=== PATIENT | female | born 1955 | race African-American/Black ===

== ENCOUNTER 2018-12-16 19:10 | Inpatient (IN) ==
[2018-12-16 19:56] LABS: Basophils % 0.4 % (0.0-0.8); Eosinophils % 0.1 % (0.00-10.9); Hematocrit 36.2 VOL% (35.7-47.0); Hemoglobin 13.4 GM/DL (12.0-16.0); Immature Granulocytes % 0.5 %; Immature Granulocytes Absolute 0.04 #; Lymphocytes # 1.2 10*3/uL (1.4-4.0); Lymphocytes % 16.6 % (21.3-54.2); Mean Corpuscular Volume 85.8 FL (87-102); Mean Platelet Volume 11.5 FL (9.6-12.0); Monocytes % 9.8 % (1.7-12.7); Neutrophils % 72.6 % (38.7-73.9); Platelet Count 234 T/CUMM (130-400); Red Blood Count 4.22 MC/CUMM (3.8-5.5); Red Cell Distribution Width 12.9 % (9.3-17.3); White Blood Count 7.4 T/CUMM (4-12)
[2018-12-16] MEDS ORDERED: LORazepam 2 MG/1 ML VIAL IV STA (20:06)
[2018-12-16] MEDS ORDERED: VANCOMYCIN INJ 1,000 MG in SODIUM CHLORIDE 0.9% 250 ML IV STA (20:06)
[2018-12-16] MEDS ORDERED: CEFEPIME 2,000 MG in SODIUM CHLORIDE 0.9% 100 ML IV STA ×2 (20:06→20:07)
[2018-12-16 20:23] LABS: Albumin 3.8 G/DL (3.4-5.0); Bilirubin,Total 0.8 MG/DL (0.2-1.0); Calcium 9.4 MG/DL (8.5-10.1); Osmolality,Calculated 262.8 MOS/KG (273-304); Total Protein 8.2 G/DL (6.4-8.3)
[2018-12-16] MEDS ORDERED: KETOROLAC 30 MG/1 ML VIAL IV STA (21:11)
[2018-12-16] MEDS ORDERED: LABETALOL 20 MG/4 ML SYRINGE IV STA (21:56)
[2018-12-16] MEDS ORDERED: hydrALAZINE 20 MG/1 ML VIAL IV STA (21:56)
[2018-12-16 22:16] LABS: Apearance,Urine CLEAR (Clear); Bacteria,Urine Occasional /HPF (Few); Bilirubin,Urine Negative (Negative); Blood, Urine Negative (Negative); Glucose,Urine (UA) Negative (Negative); Ketones,Urine Negative (Negative); Mucus,Urine Occasional /LPF (Occasional); Nitrite,Urine Negative (Negative); Protein,Urine Negative; RBC,Urine 3 /HPF (0-4); Squamous Epithelial Cell,Urine Occasional /HPF (0-10); Urine Color Yellow (Yellow); Urine Specific Gravity 1.013 (1.001-1.035); Urine Urobilinogen < 2.0 EU/DL (0.2-1.0); WBC,Urine 16 /HPF (0-6)
[2018-12-16] MEDS ORDERED: SODIUM CHLORIDE 0.9% 1,000 ML IV STA (22:36)
[2018-12-16 22:55] LABS: INR 1.6; PT Patient Result 16.8 SECS (9.6-12.2)
[2018-12-17] MEDS ORDERED: ACETAMINOPHEN 650 MG SUPP RECTAL STA (00:49)
[2018-12-17] MEDS ORDERED: ONDANSETRON 4 MG/2 ML VIAL IV PRN (03:10)
[2018-12-17] MEDS ORDERED: ACETAMINOPHEN 650 MG SUPP RECTAL PRN (03:10)
[2018-12-17 03:21] LABS: Basophils % 0.2 % (0.0-0.8); Eosinophils % 0.1 % (0.00-10.9); Hematocrit 33.1 VOL% (35.7-47.0); Immature Granulocytes % 0.5 %; Immature Granulocytes Absolute 0.05 #; Lymphocytes # 1.2 10*3/uL (1.4-4.0); Lymphocytes % 11.5 % (21.3-54.2); Mean Corpuscular HGB Conc 36.3 GM/DL (32-36); Mean Corpuscular Volume 85.3 FL (87-102); Mean Platelet Volume 11.1 FL (9.6-12.0); Monocytes % 8.4 % (1.7-12.7); Neutrophils % 79.3 % (38.7-73.9); Platelet Count 179 T/CUMM (130-400); Red Blood Count 3.88 MC/CUMM (3.8-5.5); Red Cell Distribution Width 12.6 % (9.3-17.3); White Blood Count 10.2 T/CUMM (4-12)
[2018-12-17 03:38] LABS: Calcium 8.5 MG/DL (8.5-10.1); Osmolality,Calculated 268.4 MOS/KG (273-304); Thyroid Stimulating Hormone 1.1 uIU/ml (0.358-3.74)
[2018-12-17] MEDS: SODIUM CHLORIDE 0.9% 1,000 ML IV SCH ×3 (04:33→19:53)
[2018-12-17] MEDS: LORazepam 2 MG/1 ML VIAL IV PRN (07:29)
[2018-12-17] MEDS ORDERED: MAGNESIUM SULF RIDER 4 GM in PREMIX 1 EACH IV PRN (07:45)
[2018-12-17] MEDS ORDERED: MAGNESIUM SULF RIDER 2 GM in PREMIX 1 EACH IV PRN (07:45)
[2018-12-17] MEDS ORDERED: PHENYTOIN 100 MG/2 ML VIAL IV SCH (08:00)
[2018-12-17] MEDS ORDERED: PHENYTOIN INJ 1,000 MG in SODIUM CHLORIDE 0.9% 100 ML IV ONE (09:00)
[2018-12-17] MEDS ORDERED: VANCOMYCIN INJ 1,250 MG in SODIUM CHLORIDE 0.9% 250 ML IV SCH (16:00)
[2018-12-17] MEDS ORDERED: SODIUM PHOSPHATE INJ 30 MMOL in SODIUM CHLORIDE 0.9% 250 ML IV ONE (16:10)
[2018-12-17] MEDS: PHENYTOIN 100 MG/2 ML VIAL IV SCH (17:11)
[2018-12-18] MEDS: LORazepam 2 MG/1 ML VIAL IV PRN (00:18)
[2018-12-18] MEDS: PHENYTOIN 100 MG/2 ML VIAL IV SCH ×3 (00:22→17:17)
[2018-12-18] MEDS: SODIUM CHLORIDE 0.9% 1,000 ML IV SCH ×3 (02:37→18:14)
[2018-12-18] MEDS: hydrALAZINE 20 MG/1 ML VIAL IV PRN ×3 (02:38→23:46)
[2018-12-18 05:34] LABS: Calcium 8.3 MG/DL (8.5-10.1); Osmolality,Calculated 275.7 MOS/KG (273-304)
[2018-12-18 05:51] LABS: Basophils % 0.4 % (0.0-0.8); Eosinophils # 0.2 10*3/uL (0.0-0.87); Eosinophils % 3.6 % (0.00-10.9); Immature Granulocytes % 0.2 %; Immature Granulocytes Absolute 0.01 #; Lymphocytes # 0.9 10*3/uL (1.4-4.0); Lymphocytes % 18.9 % (21.3-54.2); Mean Corpuscular HGB Conc 35.3 GM/DL (32-36); Mean Corpuscular Volume 89.5 FL (87-102); Mean Platelet Volume 11.4 FL (9.6-12.0); Monocytes % 12.9 % (1.7-12.7); Platelet Count 172 T/CUMM (130-400); Red Cell Distribution Width 13.1 % (9.3-17.3); White Blood Count 4.7 T/CUMM (4-12)
[2018-12-18] MEDS ORDERED: POTASSIUM PHOSPHATE 15 MMOL in SODIUM CHLORIDE 0.9% 100 ML IV ONE (08:37)
[2018-12-18] MEDS: VANCOMYCIN INJ 1,250 MG in SODIUM CHLORIDE 0.9% 250 ML IV SCH ×2 (10:22→22:00)
[2018-12-18] MEDS ORDERED: LORazepam 2 MG/1 ML VIAL ONE (11:37)
[2018-12-19] MEDS: PHENYTOIN 100 MG/2 ML VIAL IV SCH (00:23)
[2018-12-19] MEDS: SODIUM CHLORIDE 0.9% 1,000 ML IV SCH ×2 (04:37→12:56)
[2018-12-19] MEDS: PHENYTOIN ER 100 MG CAPSULE PO SCH ×3 (09:41→21:11)
[2018-12-19] MEDS: AMOXICILLIN/CLAV 500 MG TABLET PO SCH ×2 (09:41→20:58)
[2018-12-19] MEDS: FLUTICASONE 50 MCG NASAL SPRAY 16 GM BOTTLE BOTH NARES SCH ×2 (09:41→21:11)
[2018-12-19] MEDS: hydrALAZINE 20 MG/1 ML VIAL IV PRN ×2 (09:59→23:28)
[2018-12-19] MEDS ORDERED: POTASSIUM PHOSPHATE 30 MMOL in SODIUM CHLORIDE 0.9% 250 ML IV ONE (10:00)
[2018-12-19] MEDS: ACETAMINOPHEN 325 MG TABLET PO PRN ×2 (12:14→23:09)
[2018-12-19] MEDS: carvediloL 12.5 MG TABLET PO SCH ×2 (16:38→21:11)
[2018-12-19] MEDS: levETIRAcetam 500 MG TABLET PO SCH (20:58)
[2018-12-20] MEDS: SODIUM CHLORIDE 0.9% 1,000 ML IV SCH (02:03)
[2018-12-20 04:53] LABS: Calcium 8.4 MG/DL (8.5-10.1); Osmolality,Calculated 278.3 MOS/KG (273-304)
[2018-12-20] MEDS: PHENYTOIN ER 100 MG CAPSULE PO SCH ×2 (09:14→21:17)
[2018-12-20] MEDS: carvediloL 12.5 MG TABLET PO SCH ×2 (09:15→21:18)
[2018-12-20] MEDS: levETIRAcetam 500 MG TABLET PO SCH ×2 (09:15→21:18)
[2018-12-20] MEDS: AMOXICILLIN/CLAV 500 MG TABLET PO SCH ×2 (09:15→21:17)
[2018-12-20] MEDS: FLUTICASONE 50 MCG NASAL SPRAY 16 GM BOTTLE BOTH NARES SCH ×2 (09:22→21:18)
[2018-12-20] MEDS ORDERED: SODIUM PHOSPHATE INJ 30 MMOL in SODIUM CHLORIDE 0.9% 250 ML IV ONE (15:00)
[2018-12-20 15:04] LABS: INR 1.1; PT Patient Result 11.7 SECS (9.6-12.2)
[2018-12-20] MEDS: POLYETHYLENE GLYCOL POWDER 17 GM PACK PO SCH (15:25)
[2018-12-20] MEDS: POTASSIUM PHOS/SOD PHOS POWDER 250 MG PACK PO SCH ×2 (15:26→21:18)
[2018-12-20] MEDS: amLODIPine 10 MG TABLET PO SCH (15:27)
[2018-12-20] MEDS: ESCITALOPRAM 10 MG TABLET PO SCH (15:27)
[2018-12-20] MEDS: POLYCARBOPHIL 625 MG TABLET PO SCH ×2 (15:27→21:18)
[2018-12-20] MEDS: ACETAMINOPHEN 325 MG TABLET PO PRN (16:39)
[2018-12-20] MEDS: WARFARIN 4 MG TABLET PO SCH (20:13)
[2018-12-20] MEDS: MONTELUKAST 10 MG TABLET PO SCH (21:17)
[2018-12-20] MEDS: CARBOXYMETHYLCELLULOSE 1% OPH SOLN BOTH EYES SCH (21:18)
[2018-12-21] MEDS: hydrALAZINE 20 MG/1 ML VIAL IV PRN (04:49)
[2018-12-21] MEDS: ACETAMINOPHEN 325 MG TABLET PO PRN ×3 (04:49→21:51)
[2018-12-21 06:34] LABS: INR 1.3; PT Patient Result 13.8 SECS (9.6-12.2)
[2018-12-21] MEDS: MULTIVITAMIN (CENTRUM) TABLET PO SCH (08:47)
[2018-12-21] MEDS: AMOXICILLIN/CLAV 500 MG TABLET PO SCH ×2 (08:47→21:51)
[2018-12-21] MEDS: POLYCARBOPHIL 625 MG TABLET PO SCH ×3 (08:48→21:51)
[2018-12-21] MEDS: ESCITALOPRAM 10 MG TABLET PO SCH (08:48)
[2018-12-21] MEDS: carvediloL 12.5 MG TABLET PO SCH ×2 (08:49→21:52)
[2018-12-21] MEDS: PHENYTOIN ER 100 MG CAPSULE PO SCH ×2 (08:49→21:52)
[2018-12-21] MEDS: levETIRAcetam 500 MG TABLET PO SCH ×2 (08:49→21:52)
[2018-12-21] MEDS: CARBOXYMETHYLCELLULOSE 1% OPH SOLN BOTH EYES SCH ×2 (08:50→21:52)
[2018-12-21] MEDS: FLUTICASONE 50 MCG NASAL SPRAY 16 GM BOTTLE BOTH NARES SCH ×2 (08:54→21:52)
[2018-12-21] MEDS: amLODIPine 10 MG TABLET PO SCH (09:04)
[2018-12-21] MEDS: POTASSIUM PHOS/SOD PHOS POWDER 250 MG PACK PO SCH ×3 (09:05→21:51)
[2018-12-21] MEDS ORDERED: amLODIPine 10 MG TABLET PO SCH (14:30)
[2018-12-21] MEDS: WARFARIN 4 MG TABLET PO SCH (18:15)
[2018-12-21] MEDS: MONTELUKAST 10 MG TABLET PO SCH (21:51)
[2018-12-22 03:17] LABS: INR 1.3; PT Patient Result 14.6 SECS (9.6-12.2)
[2018-12-22] MEDS: POLYETHYLENE GLYCOL POWDER 17 GM PACK PO SCH (09:12)
[2018-12-22] MEDS: MULTIVITAMIN (CENTRUM) TABLET PO SCH (09:12)
[2018-12-22] MEDS: PHENYTOIN ER 100 MG CAPSULE PO SCH ×2 (09:12→21:42)
[2018-12-22] MEDS: POLYCARBOPHIL 625 MG TABLET PO SCH ×3 (09:12→21:41)
[2018-12-22] MEDS: carvediloL 12.5 MG TABLET PO SCH ×2 (09:12→21:42)
[2018-12-22] MEDS: levETIRAcetam 500 MG TABLET PO SCH ×2 (09:12→21:42)
[2018-12-22] MEDS: AMOXICILLIN/CLAV 500 MG TABLET PO SCH ×2 (09:12→21:45)
[2018-12-22] MEDS: ESCITALOPRAM 10 MG TABLET PO SCH (09:12)
[2018-12-22] MEDS: amLODIPine 10 MG TABLET PO SCH (09:12)
[2018-12-22] MEDS: POTASSIUM PHOS/SOD PHOS POWDER 250 MG PACK PO SCH ×3 (09:12→21:43)
[2018-12-22] MEDS: FLUTICASONE 50 MCG NASAL SPRAY 16 GM BOTTLE BOTH NARES SCH ×2 (09:17→21:41)
[2018-12-22] MEDS: CARBOXYMETHYLCELLULOSE 1% OPH SOLN BOTH EYES SCH ×2 (09:22→21:43)
[2018-12-22] MEDS: ACETAMINOPHEN 325 MG TABLET PO PRN (14:17)
[2018-12-22] MEDS: hydrALAZINE 20 MG/1 ML VIAL IV PRN ×2 (15:54→15:58)
[2018-12-22] MEDS ORDERED: WARFARIN 5 MG TABLET PO ONE (18:00)
[2018-12-22] MEDS: POTASSIUM CHLORIDE 20 MEQ TABLET PO PRN ×2 (18:30→23:11)
[2018-12-22] MEDS: MONTELUKAST 10 MG TABLET PO SCH (21:41)
[2018-12-23] MEDS: POTASSIUM CHLORIDE 20 MEQ TABLET PO PRN (01:16)
[2018-12-23 06:08] LABS: INR 1.5; PT Patient Result 15.8 SECS (9.6-12.2)
[2018-12-23] MEDS: AMOXICILLIN/CLAV 500 MG TABLET PO SCH ×2 (09:34→21:00)
[2018-12-23] MEDS: FLUTICASONE 50 MCG NASAL SPRAY 16 GM BOTTLE BOTH NARES SCH ×2 (09:34→21:01)
[2018-12-23] MEDS: PHENYTOIN ER 100 MG CAPSULE PO SCH ×2 (09:34→21:00)
[2018-12-23] MEDS: carvediloL 12.5 MG TABLET PO SCH ×2 (09:35→21:00)
[2018-12-23] MEDS: MULTIVITAMIN (CENTRUM) TABLET PO SCH (09:35)
[2018-12-23] MEDS: POTASSIUM PHOS/SOD PHOS POWDER 250 MG PACK PO SCH ×3 (09:35→21:00)
[2018-12-23] MEDS: CARBOXYMETHYLCELLULOSE 1% OPH SOLN BOTH EYES SCH ×2 (09:35→21:00)
[2018-12-23] MEDS: amLODIPine 10 MG TABLET PO SCH (09:35)
[2018-12-23] MEDS: ACETAMINOPHEN 325 MG TABLET PO PRN ×2 (09:35→14:00)
[2018-12-23] MEDS: ESCITALOPRAM 10 MG TABLET PO SCH (09:35)
[2018-12-23] MEDS: levETIRAcetam 500 MG TABLET PO SCH ×2 (09:35→21:00)
[2018-12-23] MEDS: POLYCARBOPHIL 625 MG TABLET PO SCH ×3 (09:36→21:00)
[2018-12-23] MEDS: IBUPROFEN 400 MG TABLET PO PRN (17:18)
[2018-12-23] MEDS ORDERED: WARFARIN 5 MG TABLET PO SCH (18:00)
[2018-12-23] MEDS: hydrALAZINE 20 MG/1 ML VIAL IV PRN (19:48)
[2018-12-23] MEDS: MONTELUKAST 10 MG TABLET PO SCH (21:00)
[2018-12-23] MEDS ORDERED: LABETALOL 20 MG/4 ML SYRINGE IV ONE (21:29)
[2018-12-23] MEDS ORDERED: cloNIDine 0.1 MG TABLET PO ONE (21:31)
[2018-12-24 07:21] LABS: PT Patient Result 21.3 SECS (9.6-12.2)
[2018-12-24] MEDS: levETIRAcetam 500 MG TABLET PO SCH (08:42)
[2018-12-24] MEDS: amLODIPine 10 MG TABLET PO SCH (08:43)
[2018-12-24] MEDS: MULTIVITAMIN (CENTRUM) TABLET PO SCH (08:43)
[2018-12-24] MEDS: POLYCARBOPHIL 625 MG TABLET PO SCH ×2 (08:43→15:07)
[2018-12-24] MEDS: AMOXICILLIN/CLAV 500 MG TABLET PO SCH (08:43)
[2018-12-24] MEDS: PHENYTOIN ER 100 MG CAPSULE PO SCH (08:43)
[2018-12-24] MEDS: ESCITALOPRAM 10 MG TABLET PO SCH (08:43)
[2018-12-24] MEDS: carvediloL 12.5 MG TABLET PO SCH (08:43)
[2018-12-24] MEDS: POTASSIUM PHOS/SOD PHOS POWDER 250 MG PACK PO SCH ×2 (08:43→15:07)
[2018-12-24] MEDS: CARBOXYMETHYLCELLULOSE 1% OPH SOLN BOTH EYES SCH (08:45)
[2018-12-24] MEDS: FLUTICASONE 50 MCG NASAL SPRAY 16 GM BOTTLE BOTH NARES SCH (08:55)
[2018-12-24 11:33] VITALS: BP 107/70
[2018-12-24] MEDS: IBUPROFEN 400 MG TABLET PO PRN (15:07)
[2018-12-25] MEDS ORDERED: WARFARIN 2.5 MG TABLET PO SCH (18:00)
== END 2018-12-24 17:06 | DRG 101 ==
LOC: EDUNIT# → EDBD → N.ED 19:10 → N.EDINP 12-17 01:24 → SUATTDRO 12-17 01:24 → N.5E 12-17 02:54 → N.CC 12-17 07:32 → N.4E 12-19 13:26
PROVIDERS: ADMIT Internal Medicine; ATTEND Internal Medicine